=== PATIENT | female | born 1965 | race Two or more races ===

== ENCOUNTER 2021-03-24 05:25 | Day surgery (SDC) | payer OTHER ==
[~2021-03-24 05:25] MED LIST: COZAAR50 MG PO
[2021-03-24] MEDS ORDERED: DUI500 PO (08:49)
[2021-03-24] MEDS ORDERED: ULTRACET PO (08:49)
== END 2021-03-24 15:15 | disposition home or self-care (01) ==
LOC: CIR.AMB 05:25
PROVIDERS: ATTEND Orthopaedic Surgery Sports Medicine
DX: M23.321 Other meniscus derangements, posterior horn of medial meniscus, right knee (principal); M65.821 Other synovitis and tenosynovitis, right upper arm; Z20.822 Contact with and (suspected) exposure to COVID-19

== ENCOUNTER 2023-08-26 10:03 | Day surgery (SDC) | payer OTHER ==
[2023-08-19 09:24] LABS: HEMATOCRIT 42.7 % (36.0-45.00); HEMOGLOBIN 14.2 g/dL (12.0-15.00); MEAN CELL VOLUME 92.6 fL (80.00-100.00); MEAN CORPUSCULAR HEMOGLOBIN 30.9 pg (27.00-32.0); MEAN CORPUSCULAR HGB CONC 33.3 g/dl (32.0-36.0); PLATELET COUNT 368 K/uL (150-450); RED BLOOD COUNT 4.61 M/uL (4.00-6.00); RED CELL DISTRIBUTION WIDTH 12.7 % (11.5-14.5)
[2023-08-19 09:30] LABS: URINE APPEARANCE Clear; URINE BILIRRUBIN Negative (NEGATIVE); URINE BLOOD Negative; URINE COLOR Yellow; URINE GLUCOSE Negative (NEGATIVE); URINE LEUKOCYTE Small; URINE NITRATE Negative; URINE PROTEIN Negative (NEGATIVE); URINE UROBILINOGEN 0.2 E.U./dl
[2023-08-19 09:35] LABS: URINE EPITHELIAL CELLS 18.7 uL (0.0-38.8); URINE RBC 3.8 uL (0.0-20.8); URINE WBC 94.7 uL (0.0-23.2)
[2023-08-19 09:54] LABS: ALBUMIN 3.8 gm/dL (3.4-5.0); BILIRUBIN TOTAL 0.52 mg/dL (0.3-1.2); CALCIUM 9.6 mg/dL (8.5-10.1); CREATININE SERUM 0.7 mg/dL (0.55-1.02); GFR 85.65; GLOBULINA 3.5 G/DL (2.4-3.5); INR 0.95; PARTIAL THROMBOPLASTIN TIME 27.4 SECONDS (22.0-34.0); POTASSIUM 4.66 mEq/L (3.5-5.1); TOTAL PROTEIN 7.3 gm/dL (6.4-8.2)
[~2023-08-26 10:03] MED LIST changes: +DUI500 PO; +ULTRACET PO
[2023-08-26] MEDS ORDERED: IBU600 MG PO (17:15)
[2023-08-26] MEDS ORDERED: MORGIDOX100 MG PO (17:15)
== END 2023-08-26 20:20 | disposition home or self-care (01) ==
LOC: CIR.AMB 10:03
PROVIDERS: ATTEND Obstetrics & Gynecology
DX: N84.0 Polyp of corpus uteri (principal); N95.0 Postmenopausal bleeding; D25.0 Submucous leiomyoma of uterus; I10 Essential (primary) hypertension; Z20.822 Contact with and (suspected) exposure to COVID-19